=== PATIENT | male | born 1945 | race Caucasian/White ===

== ENCOUNTER 2017-07-04 11:01 | Emergency (ER) | payer MEDICARE ==
[~2017-07-04] VITALS: Ht 170.2 cm; Wt 79.6 kg
[~2017-07-04 11:01] MED LIST: ASPI325T PO; CIPR250T2 PO; GLUCTAB PO; METR-1 PO
[2017-07-04 11:14] VITALS: BP 184/93; PULSE 100; RESP 16; TEMP 98.7; O2SAT 98
[2017-07-04] MEDS ORDERED: CARB6.5S5 EACH EAR (11:18)
[2017-07-04] MEDS ORDERED: AMOX875T PO (11:42)
[2017-07-04] MEDS ORDERED: FLUT50SP EACH NARE (11:42)
--- NOTE | 2017-07-04 11:43 | PD ---
HPI Chief Complaint: ENT Complaint Time Seen by Provider: 11:28 Travel History International Travel<30 days: No Contact w/Intl Traveler<30days: No Traveled to known affect area: No History of Present Illness HPI Patient is a 72-year-old male presenting to the emergency department for evaluation of sinus pressure and right ear pressure. Patient states he's had a history of sinusitis, for the last 2 weeks he's had increasing congestion and a dull frontal headache which is consistent with his sinus disease in the past. He had sinus surgery 3 years ago. He sees ENT every year and last saw them 6 months ago. He denies any visual changes, nausea, vomiting, fever, chills. He reports nasal congestion and postnasal drip. He states that he uses Q-tips and tried [id number] debrox to remove earwax with no success. He states his hearing is muffled. He reports the pain as a 3 out of 10. He states is pressure-like and has been consistent for the last 2 weeks. No exacerbating or alleviating factors to this point. [facility] Past Medical History Medical History: Denies Significant Hx Diminished Hearing: No Immunizations Current: Yes Tetanus Vaccination: < 5 Years Influenza Vaccination: No Past Surgical History Other Surgery: Yes (sinus rt side) Social History Alcohol Use: No Tobacco Use: No Substance Use: No Allergies-Medications (Allergen,Severity, Reaction): Coded Allergies: No Known Allergies (Verified Allergy, Mild, 07/04/17) Reported Meds & Prescriptions Reported Meds & Active Scripts Active Reported Debrox Otic Drops (Carbamide Peroxide Otic Drops) 6.5% Soln 5-10 Drop EACH EAR BID PRN up to 4 days. Review of Systems Except as stated in HPI: all other systems reviewed are Neg General / Constitutional: No: Fever Eyes: No: Blurred Vision HENT: Positive: Headaches, Rhinitis, Congestion, Other (earwax impaction), No: Lightheadedness, Sore Throat Cardiovascular: No: Chest Pain or Discomfort Respiratory: No: Cough, Shortness of Breath Gastrointestinal: No: Nausea, Vomiting, Abdominal Pain Physical Exam Narrative GENERAL: Well-developed, well-nourished, alert male. Resting comfortably in no acute distress. SKIN: Warm and dry. HEAD: Normocephalic. EYES: No scleral icterus. No injection or drainage. ENT: Mucosa pink and moist. No erythema or exudates. No uvular edema. No uvular , palatal, or tonsillar deviation. Airway patent. Nasal turbinates appear edematous without nasal blood, purulent drainage or septal hematoma. EARS: Bilateral pinnae and external canals appear within normal limits. Left tympanic membranes without erythema, dullness or perforation. Right tympanic membrane is not able to be visualized due to moderate cerumen in external ear canal. NECK: Supple, trachea midline. No JVD or lymphadenopathy. CARDIOVASCULAR: Regular rate and rhythm without murmurs, gallops, or rubs. RESPIRATORY: Breath sounds equal bilaterally. No accessory muscle use. GASTROINTESTINAL: Abdomen soft, non-tender, nondistended. MUSCULOSKELETAL: No cyanosis, or edema. BACK: Nontender without obvious deformity. No CVA tenderness. Data Data Last Documented VS Vital Signs Date Time Temp Pulse Resp B/P (MAP) Pulse Ox O2 Delivery O2 Flow Rate FiO2 07/04/17 11:14 98.7 100 16 184/93 (123) 98 [facility] Medical Decision Making Medical Screen Exam Complete: Yes Emergency Medical Condition: Yes Interpretation(s) Vital Signs Date Time Temp Pulse Resp B/P (MAP) Pulse Ox O2 Delivery O2 Flow Rate FiO2 07/04/17 11:14 98.7 100 16 184/93 (123) 98 Differential Diagnosis Otitis media versus otitis externa versus cerumen impaction versus sinusitis versus URI versus other Narrative Course Patient presented with 2 weeks of sinus pain and pressure accompanied by right ear cerumen impaction. Attempted to disimpact cerumen with a curette, small amount of cerumen removed however there is a large amount remaining that appears impacted distally. Patient was encouraged to follow-up with his ENT for cerumen impaction. He will be given a course of oral antibiotics and nasal steroids for sinusitis. He was encouraged to establish care with a primary doctor for routine health care. He was advised his blood pressure was elevated on arrival as well. He was advised that he should continue to monitor blood pressure and follow up with the primary doctor. He was encouraged to avoid use of Q-tips as this can exacerbate/cause cerumen impaction. He verbalized understanding of instructions. Patient stable for discharge. Diagnosis Primary Impression: Sinusitis Qualified Codes: J32.9 - Chronic sinusitis, unspecified Additional Impressions: Cerumen impaction Qualified Codes: H61.21 - Impacted cerumen, right ear Elevated blood pressure reading Referrals: Ear / Nose / Throat Specialist 1 week Patient Instructions: Cerumen Impaction (ED), General Instructions, Sinusitis ( GEN) Additional Instructions: Follow-up with your ENT doctor Follow-up with a primary doctor for routine health care Your blood pressure was elevated in the emergency department today. Monitor blood pressure and follow up with a primary doctor for further evaluation and/ or management Complete full course of antibiotics as prescribed Avoid use of Q-tips as this can cause wax impaction in the ear. Med/Other Pt SpecificInfo: Prescription(s) given Scripts Fluticasone Nasal [place] (Fluticasone Nasal [place]) 50 Mcg/Act Naspr 100 MCG EACH NARE DAILY for Allergy Management, #1 BOTTLE 0 Refills 50 mcg/spray Prov: Ansley Negron 07/04/17 Amoxicillin (Amoxicillin) 875 Mg Tab 875 MG PO BID for Infection, #20 TAB 0 Refills Prov: Ansley Negron 07/04/17 Disposition: 01 DISCHARGE HOME Condition: Stable Ansley Negron Jul 04, 2017 11:43
[2017-07-04 11:48] VITALS: BP 188/104
== END 2017-07-04 11:49 | disposition home or self-care (01) ==
LOC: PHEFT 11:01
DX: J32.9 Chronic sinusitis, unspecified (principal); H61.21 Impacted cerumen, right ear; R03.0 Elevated blood-pressure reading, without diagnosis of hypertension
CPT/HCPCS: 69210

== ENCOUNTER 2017-07-20 07:18 | Emergency (ER) | payer MEDICARE ==
[~2017-07-20] VITALS: Ht 170.2 cm; Wt 80.0 kg
[~2017-07-20 07:18] MED LIST changes: +AMOX875T PO; -ASPI325T PO; +CARB6.5S5 EACH EAR; -CIPR250T2 PO; +FLUT50SP EACH NARE; -GLUCTAB PO; -METR-1 PO
[2017-07-20 07:25] VITALS: BP 172/95; PULSE 104; RESP 16; TEMP 98.8; O2SAT 96
[2017-07-20] MEDS ORDERED: MAGICADU2 SWISH-SWAL (08:11)
--- NOTE | 2017-07-20 08:31 | PD ---
HPI Chief Complaint: ENT Complaint Time Seen by Provider: 07:32 Travel History International Travel<30 days: No Contact w/Intl Traveler<30days: No Traveled to known affect area: No History of Present Illness HPI This patient complains of sore throat. Duration 2 days. Denies fever. He does have some runny nose and congestion. Severity symptoms is mild to moderate PFSH Past Medical History Medical History: Denies Significant Hx Hx Anticoagulant Therapy: No Diabetes: No Diminished Hearing: No Immunizations Current: Yes Tetanus Vaccination: Unknown Past Surgical History Other Surgery: Yes (sinus rt side) Social History Alcohol Use: No Tobacco Use: No Substance Use: No Allergies-Medications (Allergen,Severity, Reaction): Coded Allergies: No Known Allergies (Verified Allergy, Mild, 07/20/17) Reported Meds & Prescriptions Reported Meds & Active Scripts Active Magic Mouthwash Adult Liq (Multi-Ingredient Mouthwash/Gargle) 120 Ml Susp 10 Ml SWISH-SWAL ACHS Each 5mL contains: Nystatin 200,000units, Diphenhydramine 4.25mg, Viscous Lidocaine 10mg, Eugene syrup 0.8 mL Review of Systems General / Constitutional: No: Fever HENT: Positive: Sore Throat, No: Headaches Respiratory: Positive: Cough Gastrointestinal: No: Vomiting Physical Exam Narrative RESPIRATORY: Respiratory effort unlabored, no retractions or use of accessory muscles. Breath sounds are clear and symmetric. SKIN: Focused skin assessment reveals no rash or ulcers. Skin is warm and dry. Palpation shows no induration or nodules. Throat clear of exudate, uvula midline. Minor erythema of the pharynx Nares shows rhinorrhea Data Data Last Documented VS Vital Signs Date Time Temp Pulse Resp B/P (MAP) Pulse Ox O2 Delivery O2 Flow Rate FiO2 07/20/17 07:25 98.8 104 16 172/95 (120) 96 MDM Medical Decision Making Medical Screen Exam Complete: Yes Emergency Medical Condition: Yes Medical Record Reviewed: Yes Differential Diagnosis Pharyngitis, URI, postnasal drip Narrative Course I have reviewed the patient's electronic medical record. He is consistent with acute viral URI and pharyngitis. No clinical suspicion of bacteria. Magic mouthwash written for symptom relief. Diagnosis Primary Impression: Acute viral pharyngitis Additional Instructions: The patient was advised to follow up with their physician and return if they worsen. The patient was warned about potential sedation for the medications they will receive on prescription. Med/Other Pt SpecificInfo: Prescription(s) given Scripts Ykqkekus-Bjshqdkqaqtrmgb-Nzcbovrdk Liq (Magic Mouthwash Adult Liq) 120 Ml Susp 10 ML SWISH-SWAL ACHS for Mouth sores, #120 ML 0 Refills Each 5mL contains: Nystatin 200,000units, Diphenhydramine 4.25mg, Viscous Lidocaine 10mg, Eugene syrup 0.8 mL Prov: Primo Ward MD 07/20/17 Disposition: DISCHARGE HOME Condition: Stable Primo Ward MD Jul 20, 2017 08:31
== END 2017-07-20 08:41 | disposition home or self-care (01) ==
LOC: PHEFT 07:18
DX: J02.8 Acute pharyngitis due to other specified organisms (principal); B97.89 Other viral agents as the cause of diseases classified elsewhere
CPT/HCPCS: 99283

== ENCOUNTER 2017-08-27 09:45 | Emergency (ER) | payer MEDICARE ==
[~2017-08-27] VITALS: Ht 170.2 cm; Wt 83.4 kg
[~2017-08-27 09:45] MED LIST changes: -AMOX875T PO; -CARB6.5S5 EACH EAR; -FLUT50SP EACH NARE; +MAGICADU2 SWISH-SWAL
[2017-08-27 09:49] VITALS: BP 186/61; PULSE 84; RESP 16; TEMP 98.4; O2SAT 97
[2017-08-27] MEDS ORDERED: ORPHENADRINE INJ 60 MG/2 ML AMP IM ONE (10:15)
--- NOTE | 2017-08-27 10:16 | PD ---
HPI Chief Complaint: Back/ Neck Pain or Injury Time Seen by Provider: 09:53 Travel History International Travel<30 days: No Contact w/Intl Traveler<30days: No Traveled to known affect area: No History of Present Illness HPI This is a 72-year-old male with a history of chronic back pain who presents for left lower back pain. He states that he was lifting heavy bags of mulch a few days ago. Since then, he has had about 3 days of pain in the left lower back. A few times, he has felt pain in the left lower abdomen. The pain is worse with bending and twisting. It does not radiate down his leg. No focal weakness , numbness, tingling, saddle paresthesias, bowel or bladder dysfunction. No fevers, chills, IV drug abuse. He has been otherwise well recently. No urinary urgency, frequency, dysuria, hematuria. He does have a history of kidney stones. He does have a Neurostim System for chronic back pain. [facility] Past Medical History Narrative Medical Chronic back pain, BPH, kidney stones Hx Anticoagulant Therapy: No Diabetes: No Diminished Hearing: No Immunizations Current: Yes Past Surgical History Abdominal Surgery: Yes (HERNIA) Prostatectomy: Yes Other Surgery: Yes (sinus rt side) Social History Alcohol Use: No Tobacco Use: No Substance Use: No Allergies-Medications (Allergen,Severity, Reaction): Coded Allergies: No Known Allergies (Verified Allergy, Mild, 08/27/17) Reported Meds & Prescriptions Reported Meds & Active Scripts Active Lidoderm (Lidocaine) 5 % Adh..patch 1 Patch EXTERNAL DAILY PRN Elliston (Hydrocodone-Acetaminophen) 5 Mg-325 Mg Tab 1 Tab PO Q6H PRN Robaxin (Methocarbamol) 500 Mg Tab 1,000 Mg PO TID Review of Systems Except as stated in HPI: all other systems reviewed are Neg Physical Exam Narrative GENERAL: Alert, well nourished, well appearing patient resting on the bed in no acute distress. Vital Signs reviewed SKIN: Focused skin assessment warm/dry. HEAD: Atraumatic. Normocephalic. EYES: Pupils equal and round. No scleral icterus. No injection or drainage. ENT: No nasal bleeding or discharge. Mucous membranes pink and moist. NECK: Trachea midline. No JVD. Spontaneous, painless full range of motion with no meningismus CARDIOVASCULAR: Regular rate and rhythm. No murmur appreciated. Extremities warm and well perfused with bounding peripheral pulses RESPIRATORY: No accessory muscle use. Clear to auscultation. Breath sounds equal bilaterally. Breathing easily and speaking in full sentences GASTROINTESTINAL: Abdomen soft, non-tender, nondistended. Normal bowel sounds. No rigid, rebound, guarding MUSCULOSKELETAL: No obvious deformities. No clubbing. No cyanosis. No edema. Compartments are soft. Tenderness at left paraspinal lower lumbar region. No midline tenderness to palpation along lumbar spine. NEUROLOGICAL: Awake and alert. No obvious cranial nerve deficits. Motor grossly within normal limits. Normal speech. Sensation intact. Normal gait. No saddle paresthesias PSYCHIATRIC: Appropriate mood and affect; insight and judgment normal. Data Data Last Documented VS Vital Signs Date Time Temp Pulse Resp B/P (MAP) Pulse Ox O2 Delivery O2 Flow Rate FiO2 08/27/17 09:49 98.4 84 16 186/61 (102) [address] Abd/Pel W/O Iv Contrast (08/27/17 10:04) Ct Lumb Spine W/O Contrast (08/27/17 10:04) Orphenadrine Inj (Norflex Inj) (08/27/17 10:15) Urinalysis - C+S If Indicated (08/27/17 10:16) Ed Discharge Order (08/27/17 11:40) Labs Laboratory Tests Test 08/27/17 11:10 Urine Color YELLOW Urine Turbidity CLEAR Urine pH 6.5 Urine Specific Hayes 1.010 Urine Protein NEG mg/dL Urine Glucose (UA) NEG mg/dL Urine Ketones NEG mg/dL Urine Occult Blood NEG Urine Nitrite NEG Urine Bilirubin NEG Urine Urobilinogen 0.2 MG/DL Urine Leukocyte Esterase NEG MDM Medical Decision Making Medical Screen Exam Complete: Yes Emergency Medical Condition: Yes Medical Record Reviewed: Yes Interpretation(s) Last 24 hours Impressions Lum[address] Spine CT 08/27/17 1004 Signed Impressions: Service Date/Time: August 10:18 - CONCLUSION: Normal examination except for marked degenerative facet disease. No other fractures identified. No significant subluxation. Yunior Gonzalez MD Abdomen/Pelvis CT 08/27/17 1004 Signed Impressions: Service Date/Time: August 10:18 - CONCLUSION: 1. Diverticulosis without diverticulitis. 2. Punctate nonobstructing left renal calculus. Josiah Bro MD Differential Diagnosis Sciatica, UTI, pyelonephritis, nephrolithiasis, spinal stenosis, no evidence of spinal compromise Narrative Course The patient appears well. He has no evidence of spinal compromise. Urinalysis , imaging was performed. Patient was given a dose of Norflex. Upon reexamination at 11:30 AM: He is resting comfortably on the bed, stating that he feels much better. We discussed the results of the workup. Plan for discharge with supportive care, continued Aleve with food for mild pain, short course of Elliston for severe pain, Robaxin for muscle spasm and close outpatient follow-up. Patient will also be prescribed lidocaine patches. Patient understands the importance of close outpatient follow-up. He understands he may require further testing and treatment as an outpatient. He understands strict return indications. He is comfortable with this plan and eager to go home. Diagnosis Primary Impression: Acute low back pain Qualified Codes: M54.5 - Low back pain Referrals: Primary Care Physician 1-4 days Patient Instructions: Acute Low Back Pain (ED), General Instructions Additional Instructions: Continue Aleve as directed on the bottle as needed for pain. Do not take for more than 5-6 days. Take with food. Use Robaxin as needed for muscle spasm. Use Elliston as needed for severe pain. No alcohol or driving after Robaxin or Elliston. Use lidocaine patches as directed. Use ice and heat as directed. Follow-up with primary physician within 1-3 days. You may require further testing and treatment as an outpatient. Med/Other Pt SpecificInfo: Prescription(s) given Scripts Lidocaine (Lidoderm) 5 % Adh..patch 1 PATCH EXTERNAL DAILY Y for PAIN SCALE 1 TO 10, #12 Prov: Iris Kumar MD 08/27/17 Hydrocodone-Acetaminophen (Elliston) 5 Mg-325 Mg Tab 1 TAB PO Q6H Y for PAIN GREATER THAN 5, #12 TAB 0 Refills Prov: Iris Kumar MD 08/27/17 Methocarbamol (Robaxin) 500 Mg Tab 1000 MG PO TID for Muscle Spasm, #24 TAB 0 Refills Prov: Iris Kumar MD 08/27/17 Disposition: 01 DISCHARGE HOME Condition: Stable Estee Kumara S. MD Aug 27, 2017 10:16
--- NOTE | 2017-08-27 10:38 | RADRPT ---
EXAM DATE/TIME: 08/27/2017 10:18 [facility] COMPARISON: No previous studies available for comparison. INDICATIONS : Left low back and flank pain. ORAL CONTRAST: No oral contrast ingested. RADIATION DOSE: 18.05 CTDIvol (mGy) MEDICAL HISTORY : None SURGICAL HISTORY : Hernia repair. ENCOUNTER: Initial ACUITY: 4 - 6 days PAIN SCALE: 10/10 LOCATION: Left flank TECHNIQUE: Volumetric scanning of the abdomen and pelvis was performed. Using automated exposure control and ad justment of the mA and/or kV according to patient size, radiation dose was kept as low as reasonably achievable to obtain optimal diagnostic quality images. DICOM format image data is available electro nically for review and comparison. FINDINGS: LOWER LUNGS: The visualized lower lungs are clear. LIVER: Homogeneous density without lesion. There is no dilation of the biliary tree. No calcified gallston es. SPLEEN: Normal size without lesion. PANCREAS: Within normal limits. KIDNEYS: Normal in size and shape. There is no mass, stone, or hydronephrosis on the right. No hydronephrosis on the left. Punctate 1 mm calculus left mid kidney.. ADRENAL GLANDS: Within normal limits. VASCULAR: There is no aortic aneurysm. BOWEL/MESENTERY: Diverticulosis of the colon greatest within the descending and sigmoid colon. No inflammatory changes .. There is no free intraperitoneal air or fluid. ABDOMINAL WALL: Within normal limits. RETROPERITONEUM: There is no lymphadenopathy. BLADDER: No wall thickening or mass. REPRODUCTIVE: Within normal limits. INGUINAL: There is no lymphadenopathy or hernia. MUSCULOSKELETAL: Degenerative changes thoracolumbar spine. CONCLUSION: 1. Diverticulosis without diverticulitis. 2. Punctate nonobstructing left renal calculus. Josiah Bro MD on August 27, 2017 at 10:32 Board Certified Radiologist. This report was verified electronically.
--- NOTE | 2017-08-27 10:42 | RADRPT ---
EXAM DATE/TIME: 08/27/2017 10:18 [facility] COMPARISON: No previous studies available for comparison. INDICATIONS : Left low back and flank pain. RADIATION DOSE: ; Reconstructed from previous dataset, no dose MEDICAL HISTORY : None SURGICAL HISTORY : Hernia repair. ENCOUNTER: Initial ACUITY: 4 - 6 days PAIN SCALE: 10/10 LOCATION: Left low back TECHNIQUE: Volumetric scanning of the lumbar spine was performed. Multiplanar reconstructions in the sagittal, coronal and oblique axial planes were performed. Using automated exposure control and adjustment of the mA and/or kV according to patient size, radiation dose was kept as low as reasonably achievable t o obtain optimal diagnostic quality images. DICOM format image data is available electronically for review and comparison. FINDINGS: VERTEBRAE: Normal vertebral body height. Marked degenerative facet disease throughout the lower lumbar spine. ALIGNMENT: No evidence of subluxation. T12-L1: The thecal sac has a normal diameter. No evidence of disc bulge or protrusion. The neural foramina are patent bilaterally. L1-L2: The thecal sac has a normal diameter. No evidence of disc bulge or protrusion. The neural foramina are patent bilaterally. L2-L3: The thecal sac has a normal diameter. No evidence of disc bulge or protrusion. The neural foramina are patent bilaterally. L3-L4: The thecal sac has a normal diameter. No evidence of disc bulge or protrusion. The neural foramina are patent bilaterally. L4-L5: The thecal sac has a normal diameter. No evidence of disc bulge or protrusion. The neural foramina are patent bilaterally. L5-S1: The thecal sac has a normal diameter. No evidence of disc bulge or protrusion. The neural foramina are patent bilaterally. CONCLUSION: Normal examination except for marked degenerative facet disease. No other fractures identified. No si gnificant subluxation. Yunior Gonzalez MD on August 27, 2017 at 10:40 Board Certified Radiologist. This report was verified electronically.
[2017-08-27 11:19] LABS: BILIRUBIN, URINE NEG (NEG); BLOOD, URINE NEG (NEG); GLUCOSE,URINE NEG (NEG); KETONE, URINE NEG (NEG); NITRITE,URINE NEG (NEG); PH, URINE 6.5 (5.0-8.5); URINE LEUKOCYTE ESTERASE NEG (NEG)
[2017-08-27 11:32] LABS: URINE COLOR YELLOW (YELLW/STRAW)
[2017-08-27] MEDS ORDERED: NORC5TAB PO (11:39)
[2017-08-27] MEDS ORDERED: LIDO1ADH4 EXTERNAL (11:39)
[2017-08-27] MEDS ORDERED: ROBA500T PO (11:39)
[2017-08-27 12:18] LABS: RBC, URINE 0-3 /hpf (0-3); SQUAMOUS EPITHELIAL CELL URINE 0-5 /hpf (0-5)
== END 2017-08-27 11:50 | disposition home or self-care (01) ==
LOC: PHEFT 09:45
DX: M54.5 Low back pain (principal)
CPT/HCPCS: 72131; 74176; 81001; 96372; 99284; J2360

== ENCOUNTER 2017-10-10 03:12 | Inpatient (IN) | payer MEDICARE, MEDICAID ==
[2017-10-10] VITALS (9 sets, daily range): BP systolic 128–217; BP diastolic 64–117; PULSE 64–111; RESP 12–18; TEMP 96–98.9; O2SAT 95–98
[~2017-10-10] VITALS: Ht 170.2 cm; Wt 89.8 kg
[~2017-10-10 03:12] MED LIST changes: +LIDO1ADH4 EXTERNAL; -MAGICADU2 SWISH-SWAL; +NORC5TAB PO; +ROBA500T PO
[2017-10-10] MEDS ORDERED: SODIUM CHLOR 0.9% 1000 ML INJ 1,000 ML IV ONE (04:06)
--- NOTE | 2017-10-10 04:10 | PD ---
HPI Chief Complaint: GI Complaint Time Seen by Provider: 04:00 Travel History International Travel<30 days: No Contact w/Intl Traveler<30days: No Traveled to known affect area: No History of Present Illness HPI The patient is a 72-year-old male that has been complaining of left lower quadrant abdominal pain and vomiting for 1 day. He says he has had a fever at home but never took his temperature at home, there is no fever here. He denies any diarrhea. He denies vomiting any blood. The pain is an 8-9/10 and is sharp pain. The patient has had kidney stones in the past as well as diverticulitis in the past. PFSH Past Medical History Hx Anticoagulant Therapy: No Diabetes: No Diminished Hearing: No Medical other: Yes (back, neck and knee pain ) Immunizations Current: Yes Tetanus Vaccination: < 5 Years Past Surgical History Abdominal Surgery: Yes (HERNIA) Prostatectomy: Yes Other Surgery: Yes (sinus rt side) Social History Alcohol Use: No Tobacco Use: No Substance Use: No Allergies-Medications (Allergen,Severity, Reaction): Coded Allergies: No Known Allergies (Verified Allergy, Mild, 08/27/17) Reported Meds & Prescriptions Reported Meds & Active Scripts Active Lidoderm (Lidocaine) 5 % Adh..patch 1 Patch EXTERNAL DAILY PRN [place] (Hydrocodone-Acetaminophen) 5 Mg-325 Mg Tab 1 Tab PO Q6H PRN Robaxin (Methocarbamol) 500 Mg Tab 1,000 Mg PO TID Review of Systems Except as stated in HPI: all other systems reviewed are Neg Physical Exam Narrative GENERAL: The patient is alert, oriented 3 in moderate distress with his abdominal discomfort. His vital signs show heart rate of 111 with blood pressure 210/113 but are otherwise normal. SKIN: Focused skin assessment warm/dry. HEAD: Atraumatic. Normocephalic. EYES: Pupils equal and round. No scleral icterus. No injection or drainage. ENT: No nasal bleeding or discharge. Mucous membranes pink and moist. NECK: Trachea midline. No JVD. CARDIOVASCULAR: Regular rate and rhythm. No murmur appreciated. RESPIRATORY: No accessory muscle use. Clear to auscultation. Breath sounds equal bilaterally. GASTROINTESTINAL: Abdomen soft, with tenderness to direct palpation in the left lower quadrant, nondistended. Hepatic and splenic margins not palpable. No guarding or rebound is present. MUSCULOSKELETAL: No obvious deformities. No clubbing. No cyanosis. No edema. NEUROLOGICAL: Awake and alert. No obvious cranial nerve deficits. Motor grossly within normal limits. Normal speech. PSYCHIATRIC: Appropriate mood and affect; insight and judgment normal. Data Data Last Documented VS Vital Signs Date Time Temp Pulse Resp B/P (MAP) Pulse Ox O2 Delivery O2 Flow Rate FiO2 10/10/17 04:24 85 16 180/85 (116) 98 Room Air 10/10/17 03:17 98.4 Orders Orders Complete Blood Count With Diff (10/10/17 04:06) Comprehensive Metabolic Panel (10/10/17 04:06) Urinalysis - C+S If Indicated (10/10/17 04:06) Ct Abd/Pel W/O Iv Contrast (10/10/17 04:06) Ecg Monitoring (10/10/17 04:06) Iv Access Insert/Monitor (10/10/17 04:06) Ketorolac Inj (Toradol Inj) (10/10/17 04:15) Morphine Inj (Morphine Inj) (10/10/17 04:15) Ondansetron Inj (Zofran Inj) (10/10/17 04:15) Sodium Chloride 0.9% Flush (Ns Flush) (10/10/17 04:15) Sodium Chlor 0.9% 1000 Ml Inj (Ns 1000 M (10/10/17 04:06) Morphine Inj (Morphine Inj) (10/10/17 05:15) Lactic Acid Sepsis Protocol (10/10/17 05:14) Blood Culture (10/10/17 05:14) Lipase (10/10/17 04:18) Sodium Chlor 0.9% 1000 Ml Inj (Ns 1000 M (10/10/17 05:45) Metronidazole 500 Mg Inj (Flagyl 500 Mg (10/10/17 05:45) Levofloxacin 750 Mg Premix Inj (Levaquin (10/10/17 05:45) Labs Laboratory Tests Test 10/10/17 04:18 10/10/17 05:30 White Blood Count 28.0 TH/MM3 Red Blood Count 5.82 MIL/MM3 Hemoglobin 16.6 GM/DL Hematocrit 52.1 % Mean Corpuscular Volume 89.5 FL Mean Corpuscular Hemoglobin 28.5 PG Mean Corpuscular Hemoglobin Concent 31.8 % Red Cell Distribution Width 12.3 % Platelet Count 331 TH/MM3 Mean Platelet Volume 8.5 FL Neutrophils (%) (Auto) 90.0 % Lymphocytes (%) (Auto) 3.0 % Monocytes (%) (Auto) 6.7 % Eosinophils (%) (Auto) 0.0 % Basophils (%) (Auto) 0.3 % Neutrophils # (Auto) 25.2 TH/MM3 Lymphocytes # (Auto) 0.8 TH/MM3 Monocytes # (Auto) 1.9 TH/MM3 Eosinophils # (Auto) 0.0 TH/MM3 Basophils # (Auto) 0.1 TH/MM3 CBC Comment AUTO DIFF Differential Comment AUTO DIFF CONFIRMED Platelet Estimate NORMAL Platelet Morphology Comment NORMAL Red Cell Morphology Comment NORMAL Blood Urea Nitrogen 30 MG/DL Creatinine 1.10 MG/DL Random Glucose 292 MG/DL Total Protein 8.6 GM/DL Albumin 4.2 GM/DL Calcium Level 9.7 MG/DL Alkaline Phosphatase 116 U/L Aspartate Amino Transf (AST/SGOT) 10 U/L Alanine Aminotransferase (ALT/SGPT) 23 U/L Total Bilirubin 0.7 MG/DL Sodium Level 137 MEQ/L Potassium Level 3.8 MEQ/L Chloride Level 98 MEQ/L Carbon Dioxide Level 30.8 MEQ/L Anion Gap 8 MEQ/L Estimat Glomerular Filtration Rate 66 ML/MIN Lipase 149 U/L MDM Medical Decision Making Medical Screen Exam Complete: Yes Emergency Medical Condition: Yes Medical Record Reviewed: Yes Interpretation(s) The complete metabolic profile shows a BUN of 30, GFR of 66, glucose 292, total protein 8.6 but is otherwise normal. The lipase is normal. The CBC shows a white count of 28,000 with hemoglobin of 16.6 and hematocrit of 52.1 and 90% neutrophils. The CT abdomen/pelvis without IV contrast shows sigmoid diverticulitis without abscess. Differential Diagnosis Diverticulitis, urinary stone, sepsis, dehydration, electrolyte disorder, urinary tract infection Narrative Course The patient has sigmoid diverticulitis without abscess. He has not perforated yet but may ultimately perforate. He has a leukocytosis and considerable discomfort. He will not do well at home and needs admission. He also has mild dehydration and still has not been able to give us urine. Physician Communication Physician Communication I discussed the patient with Dr. Bergeron, the patient will be admitted to her. Diagnosis Primary Impression: Sigmoid diverticulitis Admitting Information Admitting Physician Requests: Admit Nakul Gabriel MD Oct 10, 2017 04:10
[2017-10-10] MEDS ORDERED: ONDANSETRON HCL 4 MG/2 ML VIAL IV PUSH ONE (04:15)
[2017-10-10] MEDS ORDERED: KETOROLAC TROMETHAMINE 30 MG/ML (IVP) VIAL IV PUSH ONE (04:15)
[2017-10-10] MEDS ORDERED: MORPHINE SULFATE 4 MG/ML INJ IV PUSH ONE ×2 (04:15→05:15)
[2017-10-10] MEDS ORDERED: SODIUM CHLORIDE 0.9% FLUSH 10 ML FLUSH IVF PRN (04:15)
[2017-10-10 04:25] LABS: AUTOMATED NEUTROPHIL # 25.2 TH/MM3 (1.8-7.7); BASOPHIL # 0.1 TH/MM3 (0-0.2); BASOPHIL % 0.3 % (0.0-2.0); HEMATOCRIT 52.1 % (39.0-51.0); HEMOGLOBIN 16.6 GM/DL (13.0-17.0); LYMPHOCYTE # 0.8 TH/MM3 (1.0-4.8); MEAN CELL VOLUME 89.5 FL (80.0-100.0); MEAN CORPUSCULAR HEMOGLOBIN 28.5 PG (27.0-34.0); MEAN CORPUSCULAR HGB CONC 31.8 % (32.0-36.0); MEAN PLATELET VOLUME 8.5 FL (7.0-11.0); MONO % 6.7 % (0.0-8.0); MONOCYTE # 1.9 TH/MM3 (0-0.9); PLATELET COUNT 331 TH/MM3 (150-450); RED BLOOD COUNT 5.82 MIL/MM3 (4.50-5.90); RED CELL DISTRIBUTION WIDTH 12.3 % (11.6-17.2)
[2017-10-10 04:33] LABS: CHLORIDE 98 MEQ/L (98-107); SODIUM (NA) 137 MEQ/L (136-145)
[2017-10-10 04:36] LABS: CALCIUM 9.7 MG/DL (8.5-10.1)
[2017-10-10 04:37] LABS: ALBUMIN 4.2 GM/DL (3.4-5.0); BICARBONATE 30.8 MEQ/L (21.0-32.0); BLOOD UREA NITROGEN 30 MG/DL (7-18); GLUCOSE,RANDOM 292 MG/DL (74-106)
[2017-10-10 04:40] LABS: ALT (GPT) 23 U/L (12-78); AST (GOT) 10 U/L (15-37); GLOMERULAR FILTRATION RATE 66 ML/MIN (>89)
[2017-10-10 04:41] LABS: TOTAL BILIRUBIN ADULT 0.7 MG/DL (0.2-1.0)
[2017-10-10 04:42] LABS: TOTAL PROTEIN 8.6 GM/DL (6.4-8.2)
[2017-10-10 04:43] LABS: ALKALINE PHOSPHATASE 116 U/L (45-117)
--- NOTE | 2017-10-10 05:19 | RADRPT ---
EXAM DATE/TIME: 10/10/2017 04:36 [place] COMPARISON: CT ABDOMEN & PELVIS W/O CONTRAST, August 27, 2017, 10:18. INDICATIONS : Left lower qaudrant pain with vomiting. ORAL CONTRAST: No oral contrast ingested. RADIATION DOSE: 12.39 CTDIvol (mGy) MEDICAL HISTORY : Renal calculi. Diverticulitis. SURGICAL HISTORY : Hernia repair ENCOUNTER: Initial ACUITY: 1 day PAIN SCALE: 7/10 LOCATION: Bilateral abdomen TECHNIQUE: Volumetric scanning of the abdomen and pelvis was performed. Using automated exposure control and ad justment of the mA and/or kV according to patient size, radiation dose was kept as low as reasonably achievable to obtain optimal diagnostic quality images. DICOM format image data is available electro nically for review and comparison. FINDINGS: Examination of the lung bases demonstrates no abnormality. No pleural fluid is identified. No pulmona ry nodules are present. A small hiatal hernia is present. The gallbladder and pancreas are unremarkab le. No intrahepatic or extrahepatic ductal dilatation is seen. There is findings of diverticulitis involving the descending and sigmoid colon. There are a few small droplets of extraluminal gas present. CONCLUSION: 1. Findings of sigmoid diverticulitis without abscess Adolfo Harrison MD on October 10, 2017 at 5:13 Board Certified Radiologist. This report was verified electronically.
[2017-10-10] MEDS ORDERED: metroNIDAZOLE 500 MG INJ 100 ML IV ONE (05:45)
[2017-10-10] MEDS ORDERED: LEVOFLOXACIN 750 MG PREMIX INJ 150 ML IV ONE (05:45)
[2017-10-10] MEDS: SODIUM CHLOR 0.9% 1000 ML INJ 1,000 ML IV SCH ×5 (05:56→23:23)
[2017-10-10] MEDS ORDERED: BISACODYL 10 MG SUPP RECTAL PRN (06:00)
[2017-10-10] MEDS ORDERED: LACTULOSE SYRUP 20 GM/30 ML CUP PO PRN (06:00)
[2017-10-10] MEDS ORDERED: SENNOSIDES 8.6 MG TAB PO PRN (06:00)
[2017-10-10] MEDS ORDERED: MORPHINE SULFATE 2 MG/ML SYRINGE IV PUSH PRN (06:00)
[2017-10-10] MEDS ORDERED: SODIUM CHLORIDE 0.9% FLUSH 10 ML FLUSH IV FLUSH PRN (06:00)
[2017-10-10] MEDS ORDERED: ACETAMINOPHEN/HYDROcodone 325 MG/5 MG TAB PO PRN (06:00)
[2017-10-10] MEDS ORDERED: ACETAMINOPHEN 325 MG TAB PO PRN (06:00)
[2017-10-10] MEDS ORDERED: MAGNESIUM HYDROXIDE SUSP 30 ML CUP PO PRN (06:00)
[2017-10-10 06:03] LABS: LACTIC ACID SEPSIS PROTOCOL 3.1 mmol/L (0.4-2.0)
[2017-10-10 07:05] LABS: BILIRUBIN, URINE NEG (NEG); BLOOD, URINE NEG (NEG); GLUCOSE,URINE 1000 OR GREATER mg/dL (NEG); KETONE, URINE NEG (NEG); NITRITE,URINE NEG (NEG); PH, URINE 7.5 (5.0-8.5); URINE COLOR YELLOW (YELLW/STRAW); URINE LEUKOCYTE ESTERASE NEG (NEG)
[2017-10-10 07:11] LABS: SQUAMOUS EPITHELIAL CELL URINE 0-2 /hpf (0-5); WBC, URINE 0-2 /hpf (0-5)
[2017-10-10] MEDS: SODIUM CHLORIDE 0.9% FLUSH 10 ML FLUSH IV FLUSH SCH ×2 (09:00→21:17)
[2017-10-10] MEDS: DOCUSATE SODIUM 50 MG/SENNA 8.6 MG TAB PO SCH ×2 (09:08→21:00)
--- NOTE | 2017-10-10 10:32 | HHI.HP ---
HPI Service [facility] Hospitalists Primary Care Physician Non-Staff Admission Diagnosis Sigmoid diverticulitis, leukocytosis, dehydration-mild Diagnoses: Chief Complaint: Left lower quadrant abdominal pain Travel History International Travel<30 Days: No Contact w/Intl Traveler <30 Da: No Traveled to Known Affected Are: No Sepsis Criteria SIRS Criteria (2 or more): Heart rate over 90, WBC > 22534, < 4000 or > 10% bands Sepsis Criteria (SIRS+source): Infect source susp/known History of Present Illness This is a 72-year-old male with past medical history significant for diverticulitis, also arthritis who presented to [facility] complaining of 1 day of left lower quadrant abdominal pain described as sharp, constant, 10/10 intensity, nonradiating associated with nausea and vomiting as well as fevers and chills. The patient denies diarrhea, melena or hematochezia. Patient denies chest pain or shortness of breath. At the present time the patient still complains of severe pain in the left lower quadrant and some nausea. Review of Systems As per HPI, other systems reviewed by me and negative. Past Family Social History Past Medical History 1. Diverticulitis. 2. Denies diabetes, hypertension. Past Surgical History 1. Hernia repair. 2. Prostatectomy. Reported Medications Reported Meds & Active Scripts Active Lidoderm (Lidocaine) 5 % Adh..patch 1 Patch EXTERNAL DAILY PRN [place] (Hydrocodone-Acetaminophen) 5 Mg-325 Mg Tab 1 Tab PO Q6H PRN Robaxin (Methocarbamol) 500 Mg Tab 1,000 Mg PO TID Allergies: Coded Allergies: No Known Allergies (Verified Allergy, Mild, 08/27/17) Active Ordered Medications Current Medications Medications (Trade) Dose Ordered Sig/[place] Route Start Time Stop Time Status Last Admin Piperacillin Sod/ Tazobactam Sod 100 ml @ 200 mls/hr Q6H IV 10/10/17 12:00 Sodium Chloride 1,000 ml @ 100 mls/hr Q10H IV 10/10/17 05:47 10/10/17 07:27 (NS Flush) 2 ml UNSCH PRN IV FLUSH 10/10/17 06:00 (NS Flush) 2 ml BID IV FLUSH 10/10/17 09:00 (Zofran Inj) 4 mg Q6H PRN IVP 10/10/17 06:00 (Tylenol) 650 mg Q6H PRN PO 10/10/17 06:00 ([place] 5-325 Mg) 1 tab Q4H PRN PO 10/10/17 06:00 10/10/17 10:20 (Morphine Inj) 2 mg Q3H PRN IV PUSH 10/10/17 06:00 10/10/17 08:03 (Candi-Colace) 1 tab BID PO 10/10/17 09:00 10/10/17 09:08 (Milk Of Magnesia Liq) 30 ml Q12H PRN PO 10/10/17 06:00 (Senokot) 17.2 mg Q12H PRN PO 10/10/17 06:00 (Dulcolax Supp) 10 mg DAILY PRN RECTAL 10/10/17 06:00 (Lactulose Liq) 30 ml DAILY PRN PO 10/10/17 06:00 Family History Patient's mother from lung cancer. Patient's father had renal failure. Patient had a younger brother who from malignant melanoma. Social History The patient denies smoking, denies alcohol intake, denies illicit drug use. Physical Exam Vital Signs Vital Signs Date Time Temp Pulse Resp B/P (MAP) Pulse Ox O2 Delivery O2 Flow Rate FiO2 10/10/17 08:00 96.0 64 12 156/70 (98) 96 10/10/17 08:00 96.0 106 16 178/90 (119) 95 10/10/17 07:58 100 16 193/117 (142) 94 10/10/17 07:00 16 10/10/17 07:00 16 10/10/17 07:00 93 16 217/115 (149) 95 Room Air 10/10/17 06:33 98.9 87 16 184/82 (116) 98 Nasal Cannula 2.00 10/10/17 04:24 85 16 180/85 (116) 98 Room Air 10/10/17 03:17 98.4 111 14 210/113 (145) 96 Physical Exam GENERAL: This is a well-nourished, well-developed patient, in no apparent distress. SKIN: No rashes, ecchymoses or lesions. Cool and dry. HEAD: Atraumatic. Normocephalic. No temporal or scalp tenderness. EYES: Pupils equal round and reactive. Extraocular motions intact. No scleral icterus. No injection or drainage. ENT: Nose without bleeding, purulent drainage or septal hematoma. Throat without erythema, tonsillar hypertrophy or exudate. Uvula midline. Airway patent. NECK: Trachea midline. No JVD or lymphadenopathy. Supple, nontender, no meningeal signs. CARDIOVASCULAR: Regular rate and rhythm without murmurs, gallops, or rubs. RESPIRATORY: Clear to auscultation. Breath sounds equal bilaterally. No wheezes , rales, or rhonchi. GASTROINTESTINAL: Abdomen soft, tender to palpation of left lower quadrant, nondistended. No hepato-splenomegaly, or palpable masses. No guarding. MUSCULOSKELETAL: Extremities without clubbing, cyanosis, or edema. No joint tenderness, effusion, or edema noted. No calf tenderness. Negative Homans sign bilaterally. NEUROLOGICAL: Awake and alert. Cranial nerves II through XII intact. Motor and sensory grossly within normal limits. Five out of 5 muscle strength in all muscle groups. Normal speech. Laboratory Laboratory Tests Test 10/10/17 04:18 10/10/17 05:30 10/10/17 06:55 10/10/17 09:45 White Blood Count 28.0 Red Blood Count 5.82 Hemoglobin 16.6 Hematocrit 52.1 Mean Corpuscular Volume 89.5 Mean Corpuscular Hemoglobin 28.5 Mean Corpuscular Hemoglobin Concent 31.8 Red Cell Distribution Width 12.3 Platelet Count 331 Mean Platelet Volume 8.5 Neutrophils (%) (Auto) 90.0 Lymphocytes (%) (Auto) 3.0 Monocytes (%) (Auto) 6.7 Eosinophils (%) (Auto) 0.0 Basophils (%) (Auto) 0.3 Neutrophils # (Auto) 25.2 Lymphocytes # (Auto) 0.8 Monocytes # (Auto) 1.9 Eosinophils # (Auto) 0.0 Basophils # (Auto) 0.1 CBC Comment AUTO DIFF Differential Comment AUTO DIFF CONFIRMED Platelet Estimate NORMAL Platelet Morphology Comment NORMAL Red Cell Morphology Comment NORMAL Blood Urea Nitrogen 30 Creatinine 1.10 Random Glucose 292 Total Protein 8.6 Albumin 4.2 Calcium Level 9.7 Alkaline Phosphatase 116 Aspartate Amino Transf (AST/SGOT) 10 Alanine Aminotransferase (ALT/SGPT) 23 Total Bilirubin 0.7 Sodium Level 137 Potassium Level 3.8 Chloride Level 98 Carbon Dioxide Level 30.8 Anion Gap 8 Estimat Glomerular Filtration Rate 66 Lipase 149 Lactic Acid Level 3.1 Urine Collection Type VOIDED Urine Color YELLOW Urine Turbidity CLEAR Urine pH 7.5 Urine Specific [place] 1.020 Urine Protein TRACE Urine Glucose (UA) 1000 OR GREATER Urine Ketones NEG Urine Occult Blood NEG Urine Nitrite NEG Urine Bilirubin NEG Urine Urobilinogen 0.2 Urine Leukocyte Esterase NEG Urine WBC 0-2 Urine Squamous Epithelial Cells 0-2 Microscopic Urinalysis Comment CULT NOT INDICATED Date/Time Source Procedure Growth Status 10/10/17 05:30 Blood Peripheral Aerobic Blood Culture Pending Received 10/10/17 05:30 Blood Peripheral Anaerobic Blood Culture Pending Received Result Diagram: 10/10/17 0418 10/10/17 0418 Imaging Last Impressions Abdomen/Pelvis CT 10/10/176 Signed Impressions: Service Date/Time: Tuesday, October 10, 2017 04:36 - CONCLUSION: 1. Findings of sigmoid diverticulitis without abscess Adolfo Harrison MD Images reviewed by me. Caprini VTE Risk Assessment Caprini VTE Risk Assessment: Mod/High Risk (score >= 2) Caprini Risk Assessment Model Point Value = 1 Point Value = 2 Point Value = 3 Point Value = 5 Age 41-60 Minor surgery BMI > 25 kg/m2 Swollen legs Varicose veins or History of unexplained or recurrent spontaneous Oral contraceptives or hormone replacement Sepsis (< 1 month) Serious lung disease, including pneumonia (< 1 month) Abnormal pulmonary function Acute myocardial infarction Congestive heart failure (< 1 month) History of inflammatory bowel disease Medical patient at bed rest Age 61-74 Arthroscopic surgery Major open surgery (> 45 min) Laparoscopic surgery (> 45 min) Malignancy Confined to bed (> 72 hours) Immobilizing plaster cast Central venous access Age >= 75 History of VTE Family history of VTE Factor V Leiden Prothrombin [id number] Lupus anticoagulant Anticardiolipin antibodies Elevated serum homocysteine Heparin-induced thrombocytopenia Other congenital or acquired thrombophilia Stroke (< 1 month) Elective arthroplasty Hip, pelvis, or leg fracture Acute spinal cord injury (< 1 month) Prophylaxis Regimen Total Risk Factor Score Risk Level Prophylaxis Regimen 0-1 Low Early ambulation 2 Moderate Order ONE of the following: *Sequential Compression Device (SCD) *Heparin 5000 units SQ BID 3-4 Higher Order ONE of the following medications: *Heparin 5000 units SQ TID *Enoxaparin/Lovenox 40 mg SQ daily (WT < 150 kg, CrCl > 30 mL/min) *Enoxaparin/Lovenox 30 mg SQ daily (WT < 150 kg, CrCl > 10-29 mL/min) *Enoxaparin/Lovenox 30 mg SQ BID (WT < 150 kg, CrCl > 30 mL/min) AND/OR *Sequential Compression Device (SCD) 5 or more Highest Order ONE of the following medications: *Heparin 5000 units SQ TID (Preferred with Epidurals) *Enoxaparin/Lovenox 40 mg SQ daily (WT < 150 kg, CrCl > 30 mL/min) *Enoxaparin/Lovenox 30 mg SQ daily (WT < 150 kg, CrCl > 10-29 mL/min) *Enoxaparin/Lovenox 30 mg SQ BID (WT < 150 kg, CrCl > 30 mL/min) AND *Sequential Compression Device (SCD) Assessment and Plan Problem List: (1) Sepsis ICD Code: A41.9 - Sepsis, unspecified organism Status: Acute Plan: Sepsis present on admission with leukocytosis and tachycardia. Continue supportive care with IV fluids IV Zosyn Follow-up blood cultures Follow-up lactic acid level. (2) Uncontrolled hypertension ICD Code: I10 - Essential (primary) hypertension Plan: Patient denies history of elevated blood pressure. Possibly secondary to pain. We will place on clonidine as needed for systolic blood pressure more than 160. Provide pain control with IV morphine and IV Dilaudid for breakthrough pain. (3) Hyperglycemia ICD Code: R73.9 - Hyperglycemia, unspecified Plan: Patient denies previous history of diabetes. Patient severely elevated close to the 300s range. Will place on SSI with insulin NovoLog and monitor Accu-Cheks. Check hemoglobin A1c. (4) Leukocytosis ICD Code: D72.829 - Elevated white blood cell count, unspecified Plan: Secondary to sepsis due to acute radiculitis. Monitor CBC (5) Elevated lactic acid level ICD Code: R79.89 - Other specified abnormal findings of blood chemistry Plan: Elevated lactic acid secondary to sepsis due to acute diverticulitis. Lactic acid on admission 3.1, trending up to 4.1. Increase rate of normal saline from 100 mL/h to 150 mg/h. Continue to monitor lactic acid level. (6) Sigmoid diverticulitis ICD Code: K57.32 - Diverticulitis of large intestine without perforation or abscess without bleeding Status: Acute Plan: IV Zosyn IV Zofran IV fluids Pain control with IV morphine and IV Dilaudid. Placed on clear liquid diet. Assessment and Plan DVT prophylaxis: SCDs, heparin subcutaneous. Code Status Full code Discussed Condition With Patient, RN. Physician Certification 2 Midnight Certification Type: Admission for Inpatient Services Order for Inpatient Services The services are ordered in accordance with Medicare regulations or non- Medicare payer requirements, as applicable. In the case of services not specified as inpatient-only, they are appropriately provided as inpatient services in accordance with the 2-midnight benchmark. Estimated LOS (days): 2 days is the estimated time the patient will need to remain in the hospital, assuming treatment plan goals are met and no additional complications. Post-Hospital Plan: Home Problem Qualifiers (1) Sepsis: Qualified Codes: A41.9 - Sepsis, unspecified organism (2) Leukocytosis: Qualified Codes: D72.829 - Elevated white blood cell count, unspecified Alex Oakes MD Oct 10, 2017 10:32
[2017-10-10] MEDS ORDERED: HYDROmorphone HCL PF 1 MG/ML VIAL IV PUSH ONE (11:00)
[2017-10-10] MEDS ORDERED: HYDROmorphone HCL PF 2 MG/ML VIAL IV PUSH PRN (11:00)
[2017-10-10] MEDS ORDERED: DEXTROSE 50% IN WATER 50 ML VIAL(D50) IV PUSH PRN (11:15)
[2017-10-10] MEDS ORDERED: cloNIDine HCL 0.1 MG TAB PO PRN (11:15)
[2017-10-10] MEDS ORDERED: GLUCAGON 1 MG/ML VIAL OTHER PRN (11:15)
[2017-10-10] MEDS: ONDANSETRON HCL 4 MG/2 ML VIAL IVP PRN ×2 (11:22→17:03)
[2017-10-10] MEDS ORDERED: HYDROmorphone HCL PF 2 MG/ML VIAL IV PUSH ONE (11:30)
[2017-10-10] MEDS: PIPERACIL-TAZO 4.5 GM PREMIX 100 ML IV SCH ×3 (13:02→23:19)
[2017-10-10] MEDS: MORPHINE SULFATE 4 MG/ML INJ IV PUSH PRN ×3 (13:03→20:27)
[2017-10-10] MEDS: INSULIN ASPART SUPPLEMENTAL SCALE SQ SCH ×3 (13:16→21:30)
[2017-10-10] MEDS: HEPARIN SODIUM - SQ 10,000 UNITS/ML VIAL SQ SCH ×2 (13:17→21:16)
[2017-10-10] MEDS ORDERED: METOCLOPRAMIDE HCL 10 MG/2 ML VIAL IV PUSH PRN (13:30)
[2017-10-10] MEDS ORDERED: ENALAPRILAT 1.25 MG/ML VIAL IV PUSH PRN (13:30)
[2017-10-10 17:33] LABS: LACTIC ACID SEPSIS PROTOCOL 5.2 mmol/L (0.4-2.0)
[2017-10-10] MEDS ORDERED: SODIUM CHLOR 0.9% 1000 ML INJ 1,000 ML IV SCH (18:15)
[2017-10-10] MEDS: MORPHINE SULFATE 2 MG/ML SYRINGE IV PUSH PRN (23:18)
[2017-10-11] VITALS: BP 131/72; PULSE 89; RESP 18; TEMP 98.2; O2SAT 93
[2017-10-11] MEDS: MORPHINE SULFATE 2 MG/ML SYRINGE IV PUSH PRN ×4 (03:38→09:43)
[2017-10-11 04:00] VITALS: BP 128/68; PULSE 84; RESP 16; TEMP 98.6; O2SAT 93
[2017-10-11] MEDS: HEPARIN SODIUM - SQ 10,000 UNITS/ML VIAL SQ SCH ×3 (05:03→21:48)
[2017-10-11] MEDS: PIPERACIL-TAZO 4.5 GM PREMIX 100 ML IV SCH ×4 (05:07→23:33)
[2017-10-11] MEDS: SODIUM CHLOR 0.9% 1000 ML INJ 1,000 ML IV SCH ×3 (05:07→17:12)
[2017-10-11 07:51] LABS: AUTOMATED NEUTROPHIL # 20.4 TH/MM3 (1.8-7.7); BASOPHIL % 0.1 % (0.0-2.0); EOSINOPHIL % 0.1 % (0.0-4.0); HEMATOCRIT 38.5 % (39.0-51.0); HEMOGLOBIN 12.8 GM/DL (13.0-17.0); LYMPH % 3.4 % (9.0-44.0); LYMPHOCYTE # 0.7 TH/MM3 (1.0-4.8); MEAN CELL VOLUME 89.6 FL (80.0-100.0); MEAN CORPUSCULAR HEMOGLOBIN 29.9 PG (27.0-34.0); MEAN CORPUSCULAR HGB CONC 33.3 % (32.0-36.0); MEAN PLATELET VOLUME 7.9 FL (7.0-11.0); MONO % 3.4 % (0.0-8.0); MONOCYTE # 0.7 TH/MM3 (0-0.9); PLATELET COUNT 195 TH/MM3 (150-450); RED BLOOD COUNT 4.29 MIL/MM3 (4.50-5.90); RED CELL DISTRIBUTION WIDTH 12.4 % (11.6-17.2); WHITE BLOOD COUNT 21.8 TH/MM3 (4.0-11.0)
[2017-10-11 08:00] VITALS: BP 142/80; PULSE 82; RESP 14; TEMP 97.1; O2SAT 92
[2017-10-11 08:11] LABS: CHLORIDE 104 MEQ/L (98-107); SODIUM (NA) 138 MEQ/L (136-145)
[2017-10-11 08:26] LABS: ALBUMIN 2.7 GM/DL (3.4-5.0); ALKALINE PHOSPHATASE 63 U/L (45-117); ALT (GPT) 14 U/L (12-78); AST (GOT) 9 U/L (15-37); BICARBONATE 27.8 MEQ/L (21.0-32.0); BLOOD UREA NITROGEN 22 MG/DL (7-18); CALCIUM 7.7 MG/DL (8.5-10.1); CREATININE 0.92 MG/DL (0.60-1.30); GLOMERULAR FILTRATION RATE 81 ML/MIN (>89); GLUCOSE,RANDOM 243 MG/DL (74-106); MAGNESIUM 2.3 MG/DL (1.5-2.5); PHOSPHORUS 1.4 MG/DL (2.5-4.9); TOTAL PROTEIN 6.4 GM/DL (6.4-8.2)
[2017-10-11] MEDS: INSULIN ASPART SUPPLEMENTAL SCALE SQ SCH ×4 (08:33→21:47)
[2017-10-11] MEDS: DOCUSATE SODIUM 50 MG/SENNA 8.6 MG TAB PO SCH ×2 (08:33→21:50)
[2017-10-11] MEDS: SODIUM CHLORIDE 0.9% FLUSH 10 ML FLUSH IV FLUSH SCH ×2 (09:27→21:50)
[2017-10-11 11:32] LABS: HEMOGLOBIN A1C 7.5 % (4.3-6.0)
[2017-10-11 12:00] VITALS: BP 155/82; PULSE 81; RESP 14; TEMP 97.5; O2SAT 100
--- NOTE | 2017-10-11 12:40 | HHI.PR ---
Subjective Remarks 72-year-old male who is seen and examined today in follow-up for sigmoid diverticulitis. Patient states that he does feel a bit better. He is asking if we can advance his diet. Vital signs are stable, patient remains afebrile Objective Vitals Vital Signs Date Time Temp Pulse Resp B/P (MAP) Pulse Ox O2 Delivery O2 Flow Rate FiO2 10/11/17 08:00 97.1 82 14 142/80 (100) 92 10/11/17 07:00 18 10/11/17 04:00 98.6 84 16 128/68 (88) 93 10/11/17 00:00 98.2 89 18 131/72 (91) 93 10/10/17 21:12 18 10/10/17 20:00 96.6 89 18 146/75 (98) 97 10/10/17 16:00 97.1 83 16 128/79 (95) 96 I/O 10/10/17 10/10/17 10/10/17 10/11/17 10/11/17 10/11/17 07:00 15:00 23:00 07:00 15:00 23:00 Intake Total 2000 ml 1750 ml 875 ml 2480 ml Balance 2000 ml 1750 ml 875 ml 2480 ml Intake Oral 100 ml 25 ml 480 ml IV Total 2000 ml 1650 ml 850 ml 2000 ml # Voids 1 3 # Bowel Movements 0 Result Diagram: 10/11/17 0730 10/11/17 0730 Imaging Last Impressions Abdomen/Pelvis CT 10/10/17 0406 Signed Impressions: Service Date/Time: Tuesday, October 10, 2017 04:36 - CONCLUSION: 1. Findings of sigmoid diverticulitis without abscess Adolfo Harrison MD Objective Remarks GENERAL: Well-developed, well-nourished, in no acute distress. alert and orientated HEENT: Head is normocephalic without any lesions or masses noted. Facial features are symmetric. Eyes: Extraocular muscles are intact. Conjunctivae were clear. NECK: Supple without any masses. Trachea midline no deviation. No JVD, CARDIAC: Regular rhythm, regular rate. S1/S2 are heard. No murmurs gallops or rubs. LUNGS: Clear to auscultation bilaterally. No wheeze, rhonchi or rales. No use of accessory muscles on inspiration or expiration. ABDOMEN: Soft, nontender. Nondistended. Bowel sounds heard in all 4 quadrants. No organomegaly or masses. Negative rebound, negative guarding EXTREMITIES: No edema, pulses are equal bilaterally. No cyanosis or clubbing NEUROLOGY: Mood and affect appear appropriate. Cranial nerves II through XII grossly intact. Moving all extremities, speech clear Urinary Catheter: No Vascular Central Line Catheter: No A/P Assessment and Plan Sepsis, resolved Leukocytosis Lactic acidosis -Patient presented with leukocytosis, lactic acidosis, diverticulitis -Blood cultures are negative for 1 day -Patient continue on IV fluids, decreased rate to 84 ml/hr -Patient continued on Zosyn -Lactic acidosis have resolved -Continue monitor leukocytosis Sigmoid diverticulitis -Patient continued on Zosyn -Advance diet as tolerated -Start p.o. pain control Hyperglycemia in a patient with known history of diabetes -Accu-Cheks with sliding scale insulin -Awaiting hemoglobin A1c result Accelerated hypertension -Start Norvasc 5 mg daily -Clonidine, Vasotec as needed DVT prevention -Sequential compression devices -Subcutaneous heparin Discharge Planning Discharge planning tomorrow if leukocytosis improved and clinically stable Primo Gabriel Oct 11, 2017 12:40
[2017-10-11] MEDS ORDERED: ACETAMINOPHEN/HYDROcodone 325 MG/5 MG TAB PO PRN (12:45)
[2017-10-11] MEDS: amLODIPine BESYLATE 5 MG TAB PO SCH (13:41)
[2017-10-11] MEDS: ACETAMINOPHEN/HYDROcodone 325 MG/7.5 MG TAB PO PRN (14:39)
[2017-10-11 16:00] VITALS: BP 160/85; PULSE 86; RESP 14; TEMP 99.7; O2SAT 99
[2017-10-11] MEDS ORDERED: MORPHINE SULFATE 2 MG/ML SYRINGE IV PUSH PRN (16:45)
[2017-10-11 20:00] VITALS: BP 155/96; PULSE 83; RESP 16; TEMP 98.6; O2SAT 94
[2017-10-12] VITALS: BP 142/91; PULSE 79; RESP 18; TEMP 98.3; O2SAT 93
[2017-10-12] MEDS: SODIUM CHLOR 0.9% 1000 ML INJ 1,000 ML IV SCH ×2 (05:08→16:34)
[2017-10-12] MEDS: HEPARIN SODIUM - SQ 10,000 UNITS/ML VIAL SQ SCH ×3 (06:10→20:44)
[2017-10-12] MEDS: PIPERACIL-TAZO 4.5 GM PREMIX 100 ML IV SCH ×3 (06:11→17:43)
[2017-10-12 08:00] VITALS: BP 184/94; PULSE 86; RESP 14; TEMP 97.8; O2SAT 92
[2017-10-12] MEDS: INSULIN ASPART SUPPLEMENTAL SCALE SQ SCH ×4 (08:04→20:44)
[2017-10-12] MEDS: SODIUM CHLORIDE 0.9% FLUSH 10 ML FLUSH IV FLUSH SCH ×2 (08:32→20:38)
[2017-10-12] MEDS: DOCUSATE SODIUM 50 MG/SENNA 8.6 MG TAB PO SCH ×3 (08:32→20:49)
[2017-10-12 09:14] LABS: AUTOMATED NEUTROPHIL # 18.4 TH/MM3 (1.8-7.7); BASOPHIL # 0.2 TH/MM3 (0-0.2); BASOPHIL % 1.2 % (0.0-2.0); EOSINOPHIL % 0.2 % (0.0-4.0); HEMATOCRIT 39.1 % (39.0-51.0); HEMOGLOBIN 12.9 GM/DL (13.0-17.0); LYMPH % 5.3 % (9.0-44.0); LYMPHOCYTE # 1.1 TH/MM3 (1.0-4.8); MEAN CELL VOLUME 88.9 FL (80.0-100.0); MEAN CORPUSCULAR HEMOGLOBIN 29.4 PG (27.0-34.0); MEAN PLATELET VOLUME 7.6 FL (7.0-11.0); MONO % 3.3 % (0.0-8.0); MONOCYTE # 0.7 TH/MM3 (0-0.9); PLATELET COUNT 214 TH/MM3 (150-450); RED CELL DISTRIBUTION WIDTH 12.3 % (11.6-17.2); WHITE BLOOD COUNT 20.4 TH/MM3 (4.0-11.0)
--- NOTE | 2017-10-12 09:14 | HHI.PR ---
Subjective Remarks Follow-up acute diverticulitis. Patient seen and examined lying in bed comfortably in no apparent distress. No reports of any acute events overnight. Vital signs are stable. Afebrile overnight. Blood pressure mildly elevated overnight. Blood cultures growing gram-negative lizette. Repeat blood cultures pending. Continue IV fluids and IV antibiotics. Leukocytosis trending down. Objective Vitals Vital Signs Date Time Temp Pulse Resp B/P (MAP) Pulse Ox O2 Delivery O2 Flow Rate FiO2 10/12/17 00:00 98.3 79 18 142/91 (108) 93 10/11/17 20:00 98.6 83 16 155/96 (115) 94 10/11/17 16:00 99.7 86 14 160/85 (110) 99 10/11/17 12:00 97.5 81 14 155/82 (106) 100 I/O 10/11/17 10/11/17 10/11/17 10/12/17 10/12/17 10/12/17 06:59 14:59 22:59 06:59 14:59 22:59 Intake Total 2480 ml 1500 ml 1400 ml Balance 2480 ml 1500 ml 1400 ml Intake Oral 480 ml 1500 ml IV Total 2000 ml 1400 ml # Voids 3 3 3 # Bowel Movements 0 Result Diagram: 10/11/17 0730 10/11/17 0730 Imaging Last Impressions Abdomen/Pelvis CT 10/10/17 0406 Signed Impressions: Service Date/Time: Tuesday, October 10, 2017 04:36 - CONCLUSION: 1. Findings of sigmoid diverticulitis without abscess Adolfo Harrison MD Objective Remarks GENERAL: Well-developed, well-nourished patient in [facility]. SKIN: Warm and dry. No rash. HEAD: Normocephalic. Atraumatic. EYES: Pupils equal and round. No scleral icterus. No injection or drainage. ENT: No nasal bleeding or discharge. Mucous membranes pink and moist. NECK: Supple. Trachea midline. CARDIOVASCULAR: Regular rate and rhythm. S1, S2 noted. No murmur appreciated. RESPIRATORY: No accessory muscle use. Clear to auscultation. Breath sounds equal bilaterally. GASTROINTESTINAL: Abdomen soft, non-tender, nondistended. Normoactive bowel sounds x4. MUSCULOSKELETAL: No obvious deformities. Extremities without clubbing, cyanosis , or edema. NEUROLOGICAL: Awake and alert. No obvious cranial nerve deficits. Motor grossly within normal limits. 5/5 muscle strength in bilateral upper and lower extremities. Normal speech. PSYCHIATRIC: Appropriate mood and affect; insight and judgment normal. A/P Problem List: (1) Sepsis ICD Code: A41.9 - Sepsis, unspecified organism Status: Acute (2) Uncontrolled hypertension ICD Code: I10 - Essential (primary) hypertension (3) Hyperglycemia ICD Code: R73.9 - Hyperglycemia, unspecified (4) Leukocytosis ICD Code: D72.829 - Elevated white blood cell count, unspecified (5) Elevated lactic acid level ICD Code: R79.89 - Other specified abnormal findings of blood chemistry (6) Sigmoid diverticulitis ICD Code: K57.32 - Diverticulitis of large intestine without perforation or abscess without bleeding Status: Acute Assessment and Plan Sepsis, resolved. Leukocytosis, trending down. Lactic acidosis, resolved. -Patient presented with leukocytosis, lactic acidosis, diverticulitis -Blood cultures growing gram-negative lizette and anaerobic bottles. Awaiting repeat blood cultures. -Patient continue on IV fluids -Patient continued on Zosyn -Continue monitor leukocytosis Sigmoid diverticulitis -Patient continued on Zosyn -Advance diet as tolerated, tolerating diet well. No nausea or vomiting. -[place] available as needed for pain control. Hyperglycemia in a patient with known history of diabetes -Accu-Cheks with sliding scale insulin, cover as needed. Monitor blood sugar trends. -Hemoglobin A1c 7.5. -We will need to place patient on diabetic medication on discharge and follow- up with PCP. Patient does not take anything for diabetes. Accelerated hypertension -Start Norvasc 5 mg daily -Clonidine, Vasotec as needed DVT prevention -Sequential compression devices -Subcutaneous heparin Discharge Planning Discharge when blood cultures are negative. Expect 2-3 days. Problem Qualifiers (1) Sepsis: Qualified Codes: A41.9 - Sepsis, unspecified organism (2) Leukocytosis: Qualified Codes: D72.829 - Elevated white blood cell count, unspecified Maria Guadalupe Saha Oct 12, 2017 09:14
[2017-10-12] MEDS: amLODIPine BESYLATE 5 MG TAB PO SCH (09:38)
[2017-10-12 12:00] VITALS: BP 184/94; PULSE 82; RESP 14; TEMP 97.9; O2SAT 93
[2017-10-12 16:00] VITALS: BP 160/87; PULSE 80; RESP 18; TEMP 96.6; O2SAT 94
[2017-10-12 20:00] VITALS: BP 177/85; PULSE 85; RESP 18; TEMP 96.7; O2SAT 94
[2017-10-12] MEDS: ACETAMINOPHEN/HYDROcodone 325 MG/7.5 MG TAB PO PRN (20:37)
[2017-10-13] VITALS: BP 146/75; PULSE 79; RESP 20; TEMP 96.3; O2SAT 92
[2017-10-13] MEDS: PIPERACIL-TAZO 4.5 GM PREMIX 100 ML IV SCH ×3 (00:07→11:33)
[2017-10-13] MEDS: SODIUM CHLOR 0.9% 1000 ML INJ 1,000 ML IV SCH (05:45)
[2017-10-13] MEDS: HEPARIN SODIUM - SQ 10,000 UNITS/ML VIAL SQ SCH ×2 (05:45→14:00)
[2017-10-13 06:16] LABS: AUTOMATED NEUTROPHIL # 13.9 TH/MM3 (1.8-7.7); BASOPHIL # 0.3 TH/MM3 (0-0.2); BASOPHIL % 1.9 % (0.0-2.0); EOSINOPHIL # 0.1 TH/MM3 (0-0.4); EOSINOPHIL % 0.7 % (0.0-4.0); HEMATOCRIT 40.7 % (39.0-51.0); HEMOGLOBIN 13.5 GM/DL (13.0-17.0); LYMPH % 8.5 % (9.0-44.0); LYMPHOCYTE # 1.4 TH/MM3 (1.0-4.8); MEAN CELL VOLUME 88.1 FL (80.0-100.0); MEAN CORPUSCULAR HEMOGLOBIN 29.1 PG (27.0-34.0); MEAN CORPUSCULAR HGB CONC 33.1 % (32.0-36.0); MONO % 6.1 % (0.0-8.0); NEUT % 82.8 % (16.0-70.0); PLATELET COUNT 226 TH/MM3 (150-450); RED BLOOD COUNT 4.62 MIL/MM3 (4.50-5.90); RED CELL DISTRIBUTION WIDTH 12.5 % (11.6-17.2); WHITE BLOOD COUNT 16.7 TH/MM3 (4.0-11.0)
[2017-10-13 08:00] VITALS: BP 141/73; PULSE 91; RESP 14; TEMP 96.7; O2SAT 93
[2017-10-13] MEDS: INSULIN ASPART SUPPLEMENTAL SCALE SQ SCH ×2 (08:00→11:47)
[2017-10-13] MEDS: DOCUSATE SODIUM 50 MG/SENNA 8.6 MG TAB PO SCH (08:08)
[2017-10-13] MEDS: SODIUM CHLORIDE 0.9% FLUSH 10 ML FLUSH IV FLUSH SCH (08:09)
--- NOTE | 2017-10-13 11:21 | HHI.DCPOC ---
Discharge Care Plan Diagnosis: (1) Sigmoid diverticulitis (2) Sepsis Goals to Promote Your Health * To prevent worsening of your condition and complications * To maintain your health at the optimal level Directions to Meet Your Goals Take your medications as prescribed Follow your dietary instruction Follow activity as directed Keep your appointments as scheduled Take your immunizations and boosters as scheduled If your symptoms worsen call your PCP, if no PCP go to Urgent Care Center or Emergency Room Smoking is Dangerous to Your Health. Avoid second hand smoke Call the 24-hour hour crisis hotline for domestic abuse at Maria Guadalupe Saha Oct 13, 2017 11:21
--- NOTE | 2017-10-13 11:21 | HHI.DS ---
Discharge Summary Admission Date Oct 10, 2017 at 05:53 Discharge Date: Oct 13, 2017 Admitting Diagnosis Sigmoid diverticulitis, leukocytosis, dehydration-mild (1) Sepsis ICD Code: A41.9 - Sepsis, unspecified organism Status: Acute (2) Uncontrolled hypertension ICD Code: I10 - Essential (primary) hypertension (3) Hyperglycemia ICD Code: R73.9 - Hyperglycemia, unspecified (4) Leukocytosis ICD Code: D72.829 - Elevated white blood cell count, unspecified (5) Elevated lactic acid level ICD Code: R79.89 - Other specified abnormal findings of blood chemistry (6) Sigmoid diverticulitis ICD Code: K57.32 - Diverticulitis of large intestine without perforation or abscess without bleeding Status: Acute Procedures Please see below. Brief History - From Admission This is a 72-year-old male with past medical history significant for diverticulitis, also arthritis who presented to [facility] complaining of 1 day of left lower quadrant abdominal pain described as sharp, constant, 10/10 intensity, nonradiating associated with nausea and vomiting as well as fevers and chills. The patient denies diarrhea, melena or hematochezia. Patient denies chest pain or shortness of breath. At the present time the patient still complains of severe pain in the left lower quadrant and some nausea. CBC/BMP: 10/13/17 0550 10/11/17 0730 Significant Findings Laboratory Tests Test 10/10/17 16:25 10/10/17 19:08 10/11/17 07:30 10/12/17 09:00 Lactic Acid Level 5.2 mmol/L (0.4-2.0) 4.4 mmol/L (0.4-2.0) White Blood Count 21.8 TH/MM3 (4.0-11.0) 20.4 TH/MM3 (4.0-11.0) Red Blood Count 4.29 MIL/MM3 (4.50-5.90) 4.40 MIL/MM3 (4.50-5.90) Hemoglobin 12.8 GM/DL (13.0-17.0) 12.9 GM/DL (13.0-17.0) Hematocrit 38.5 % (39.0-51.0) Neutrophils (%) (Auto) 93.0 % (16.0-70.0) 90.0 % (16.0-70.0) Lymphocytes (%) (Auto) 3.4 % (9.0-44.0) 5.3 % (9.0-44.0) Neutrophils # (Auto) 20.4 TH/MM3 (1.8-7.7) 18.4 TH/MM3 (1.8-7.7) Lymphocytes # (Auto) 0.7 TH/MM3 (1.0-4.8) Blood Urea Nitrogen 22 MG/DL (7-18) Random Glucose 243 MG/DL (74-106) Albumin 2.7 GM/DL (3.4-5.0) Calcium Level 7.7 MG/DL (8.5-10.1) Phosphorus Level 1.4 MG/DL (2.5-4.9) Aspartate Amino Transf (AST/SGOT) 9 U/L (15-37) Estimat Glomerular Filtration Rate 81 ML/MIN (>89) Test 10/13/17 05:50 White Blood Count 16.7 TH/MM3 (4.0-11.0) Neutrophils (%) (Auto) 82.8 % (16.0-70.0) Lymphocytes (%) (Auto) 8.5 % (9.0-44.0) Neutrophils # (Auto) 13.9 TH/MM3 (1.8-7.7) Monocytes # (Auto) 1.0 TH/MM3 (0-0.9) Basophils # (Auto) 0.3 TH/MM3 (0-0.2) Imaging Last Impressions Abdomen/Pelvis CT 10/10/17 0406 Signed Impressions: Service Date/Time: Tuesday, October 10, 2017 04:36 - CONCLUSION: 1. Findings of sigmoid diverticulitis without abscess Adolfo Harrison MD PE at Discharge GENERAL: Well-developed, well-nourished patient in [facility]. SKIN: Warm and dry. No rash. HEAD: Normocephalic. Atraumatic. EYES: Pupils equal and round. No scleral icterus. No injection or drainage. ENT: No nasal bleeding or discharge. Mucous membranes pink and moist. NECK: Supple. Trachea midline. CARDIOVASCULAR: Regular rate and rhythm. S1, S2 noted. No murmur appreciated. RESPIRATORY: No accessory muscle use. Clear to auscultation. Breath sounds equal bilaterally. GASTROINTESTINAL: Abdomen soft, non-tender, nondistended. Normoactive bowel sounds x4. MUSCULOSKELETAL: No obvious deformities. Extremities without clubbing, cyanosis , or edema. NEUROLOGICAL: Awake and alert. No obvious cranial nerve deficits. Motor grossly within normal limits. 5/5 muscle strength in bilateral upper and lower extremities. Normal speech. PSYCHIATRIC: Appropriate mood and affect; insight and judgment normal. Pt update on day of discharge Follow-up acute diverticulitis. Patient seen and examined, lying in bed comfortably no apparent distress. No reports of any acute events overnight. Afebrile overnight. Vital signs stable. Patient is eating well and drinking well with no abdominal pain, nausea or vomiting. Ambulating well with no weakness. Patient is eager to get home. States he is improved to his baseline. Has positive bowel movement. No diarrhea or constipation. Hospital Course This is a 72-year-old male with past medical history significant for diverticulitis, also arthritis who presented to [facility] complaining of 1 day of left lower quadrant abdominal pain described as sharp, constant, 10/10 intensity, nonradiating associated with nausea and vomiting as well as fevers and chills. Patient presented with sepsis and leukocytosis with lactic acidosis suspect secondary to diverticulitis. Blood cultures initially growing gram-negative lizette and anaerobic bottles. Repeat blood cultures are negative 2 days. Will follow these upon discharge. Patient was placed on Zosyn IV and IV fluids. Leukocytosis is trending down. Patient is tolerating regular diet with no abdominal pain, nausea or vomiting. [place] was available for pain control. Was also found that patient was hyperglycemic with no known history of diabetes. Accu-Cheks and sliding scale insulin was given covered with insulin as needed. Hemoglobin A1c 7.5. Patient placed on metformin 500 mg p.o. twice daily upon discharge and recommendations follow-up with PCP. Nursing to provide diabetes education and for patient to follow-up with PCP for more education and information with management of diabetes. Blood sugar monitor and test strips and lancets ordered. It was also found that patient had hypertension while hospitalized. Patient was started on Norvasc and dose increased to 10 mg daily. Patient has been on IV fluids which may increase his diabetes, will have patient follow-up with PCP on the 10 mg of Norvasc and adjust as needed. Upon discharge patient's blood pressures in the 150s. Pt Condition on Discharge: Stable Discharge Disposition: Discharge Home Discharge Time: > 30 minutes Discharge Instructions DIET: Follow Instructions for: Heart Healthy Diet, Diabetic Diet Speech Therapy-Diet Recommends: Regular Activities you can perform: Regular-No Restrictions Follow up Referrals: PCP Follow-up - 1 Week New Medications: Blood Glucose Monitoring Suppl (Accu-Chek Cecilia Connect W/Device) 1 Kit Kit KIT .XX DIRECTED for Blood Sugar Management, #1 0 Refills Blood Glucose Test Strips (Blood Glucose Test Strips) Strips Strip EA .XX DIRECTED for Blood Sugar Management, #1 0 Refills Lancets (Lancets) 1 Mis Mis EA .XX DIRECTED for Blood Sugar Management, #1 0 Refills Metformin (Metformin) 500 Mg Tab 500 MG PO BIDPC for Blood Sugar Management, #60 TAB 0 Refills Amlodipine (Norvasc) 10 Mg Tab 10 MG PO DAILY for hypertension for 10 Days, #30 TAB Continued Medications: Hydrocodone-Acetaminophen ([place]) 5 Mg-325 Mg Tab 1 TAB PO Q6H PRN for PAIN GREATER THAN 5, #12 TAB 0 Refills Lidocaine (Lidoderm) 5 % Adh..patch 1 PATCH EXTERNAL DAILY PRN for PAIN SCALE 1 TO 10, #12 Methocarbamol (Robaxin) 500 Mg Tab 1000 MG PO TID for Muscle Spasm, #24 TAB 0 Refills Maria Guadalupe Saha Oct 13, 2017 11:21
[2017-10-13] MEDS ORDERED: AMLO10 PO (11:58)
[2017-10-13] MEDS ORDERED: METF500T PO (12:00)
[2017-10-13] MEDS ORDERED: BLOOD GLUCOSE T1 TES (12:01)
[2017-10-13] MEDS ORDERED: LANCETS1 MI1 (12:01)
[2017-10-13] MEDS ORDERED: BLOO1KIT65 (12:01)
[2017-10-13 12:25] VITALS: BP 166/86; PULSE 86; RESP 16; TEMP 98.8; O2SAT 93
[2017-10-13] MEDS ORDERED: AUGM875T3 PO (12:53)
[2017-10-13] MEDS ORDERED: METR-1 PO (13:22)
== END 2017-10-13 16:04 | disposition home or self-care (01) | DRG 872 ==
LOC: PHED 03:12 → PHEDA 05:53 → PH3A 07:34
PROVIDERS: ADMIT Hospitalist; ATTEND Hospitalist
DX: A41.9 Sepsis, unspecified organism (principal); E87.2 Acidosis; E11.65 Type 2 diabetes mellitus with hyperglycemia; K57.32 Diverticulitis of large intestine without perforation or abscess without bleeding; E86.0 Dehydration; I10 Essential (primary) hypertension; M19.90 Unspecified osteoarthritis, unspecified site; R00.0 Tachycardia, unspecified
CPT/HCPCS: 74176; 80053; 81001; 82948; 83036; 83605; 83690; 83735; 84100; 85025; 87040; 87076; 87185; 87205; 96361; 96374; 96375; 96376; J1170; J1644; J1815; J1885; J1956; J2270; J2405; J2543; J2765; J7030